=== PATIENT | female | born 1995 | race Caucasian/White ===

== ENCOUNTER 2019-12-19 01:44 | Emergency (ER) | payer OTHER ==
[~2019-12-19] VITALS: Ht 152.4 cm; Wt 67.6 kg
[2019-12-19 01:50] VITALS: BP 118/76; Ht 152.4 cm; Wt 67.6 kg
== END 2019-12-19 02:38 | disposition other institution (70) ==
LOC: ED 01:44
DX: Z02.89 Encounter for other administrative examinations (principal)